=== PATIENT | female | born 1990 | race Caucasian/White ===

== ENCOUNTER 2018-10-09 11:08 | Outpatient (CLI) | payer BC, SELFPAY ==
--- NOTE | 2018-10-09 11:00 | DI.US_ITS ---
SYMPTOM/DIAGNOSIS: LUMP AXILLARY TAIL RT BREAST N 63.91 ULTRASOUND RIGHT BREAST: The study was done according to the usual protocol and reveals multiple lymph nodes in the right breast. The largest node measures up to as much as 3.2 x 0.6 x 1.2 cm in the axillary region. There is a question of subcutaneous mass involving the skin with skin thickening and heterogeneous echogenicity is identified. Mild color flow is noted at this site which is in the region of the patient's palpable lump. SUMMARY: A subcutaneous region of soft tissue abnormality is demonstrated in the right axilla and appears to likely represent a dermatological abnormality. There is no evidence of a breast lesion. These findings to be correlated with the patient's clinical status and clinical management is recommended with a biopsy to be performed if clinically appropriate.
== END 2018-10-09 11:28 ==
PROVIDERS: PCP Nurse Practitioner Family; Visit Provider Nurse Practitioner Family
DX: N63.31 Unspecified lump in axillary tail of the right breast (principal); R59.0 Localized enlarged lymph nodes
CPT/HCPCS: 76642

== ENCOUNTER 2019-03-03 08:57 | Emergency (ER) | payer BC, SELFPAY ==
[2019-03-03 09:04] VITALS: BP 125/74; PULSE 59; RESP 16; TEMP 36.6; O2SAT 98
--- NOTE | 2019-03-03 09:31 | W.ED.GENAD ---
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 Fong of gynecology. Please return immediately to the emergency department if you develop any new or worsening symptoms or if you become otherwise concerned. Referrals: Amy Cuellar MD [ [facility] STAFF PHYSICIAN] - Medical Decision Making Lacey Cunningham is a 28-year-old woman without history of major medical problems presenting to the emergency department with genital pain worsening after starting Bactrim 02/26 for same complaint. On exam, patient is very well and nontoxic appearing. There appears to be a perineal abscess, exam not consistent with typical Bartholin cyst or perirectal abscess. I discussed the patient with Dr. Cuellar of gynecology, who will see the patient immediately upstairs. Pt is stable for d/c from ED for outpt f/u. Plan to discharge patient from the emergency department immediately to Dr. Cuellar in this building. I had a lengthy discussion with the patient regarding return to emergency department precautions, importance of going directly upstairs for further evaluation. Patient verbalized understanding of the plan was amenable. All questions were answered. Medical Records Medical records reviewed: Yes I reviewed the patient's medical records. HPI General Mode of arrival: ambulatory. Date/Time Provider Initiated Documentation: 03/03/19 09:31. Limitations to Documentation: no limitations. Information obtained by: patient, RN notes reviewed and old records reviewed. HPI Narrative: Lacey Cunningham is a 28 y/o woman with out reported history of major medical problems presenting to the emergency department with vaginal pain. Patient reports that she was seen here 02/26 and diagnosed with Bartholin cyst. At that time she was given the option of I&D versus antibiotic treatment. At that time patient elected to have antibiotic treatment and defer I&D. She reports that she has been taking antibiotics as prescribed, but this seems to have enlarged and has become more painful. Patient denies any other symptoms, feels otherwise in her usual state of health. Related Data Home Medications Medication Instructions Recorded Confirmed sulfamethoxazole 800 1 tab PO BID 7 Days #14 tab 02/26/19 03/03/19 mg-trimethoprim 160 mg tablet oxycodone-acetaminophen 5 mg-325 1 tab PO Q6H PRN #5 tab MDD 4 03/03/19 mg tablet Previous Rx's Medication Instructions Recorded sulfamethoxazole 800 1 tab PO BID 7 Days #14 tab 02/26/19 mg-trimethoprim 160 mg tablet oxycodone-acetaminophen 5 mg-325 1 tab PO Q6H PRN #5 tab MDD 4 03/03/19 mg tablet Allergies Allergy/AdvReac Type Severity Reaction Status Date / Time ibuprofen Allergy Severe Anaphylaxsi Verified 03/03/19 09:08 s General Stated 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: 3 Review of Systems Review of Systems Constitutional: denies fevers Eyes: denies eye pain ENT: denies facial pain, dental pain, sore throat Cardiovascular: denies chest pain Respiratory: denies SOB, cough GI: denies abdominal pain, vomiting, diarrhea : denies flank pain, dysuria, vaginal discharge or itching MSK: denies back pain, neck pain, arthralgias, myalgias Skin: denies rash Neuro: denies headaches, numbness, weakness PFSH Social History Smoking/Tobacco Use Status: Current-Occasional Drug use: Occasionally Substance use type: marijuana Do you feel safe at home: Yes Female Reproductive History Menstrual Age of Menarche: 13 control method: none History History 0 Para Hx # Term Pregnancies Multiple births Hx # Pregnancies Ectopic pregnancies AB induced Hx Number of Living Children AB spontaneous Exam Narrative Exam Narrative: Constitutional: well and [id number], pleasant, conversing normally HENT: head atraumatic/normocephalic/normal inspection, mucous membranes moist Eyes: conjunctiva normal, sclera normal, pupils 3mm b/l Neck: no stridor, normal ROM, trachea midline Resp: normal work of breathing, LCTAB Cardio: normal rate, normal rhythm, no murmur appreciated GI: abdomen soft, non-tender, non-distended : Perineum with fluctuant, erythematous, tender area to the right of midline approximately 2 x 3 cm adjacent to anus. Does not involve vaginal introitus, vaginal introitus normal inspection and nontender to palpation. Also does not involve anus, rectal exam normal without blood or tenderness Skin: warm, dry, normal color, no rash Neuro: alert, not altered, grossly non-focal, normal tone Psych: normal mood, normal affect, normal behavior Course Vital Signs Temperature 36.6 C 03/03/19 09:04 Pulse 59 L 03/03/19 09:04 Respiratory Rate 16 03/03/19 09:04 Blood Pressure 125/74 03/03/19 09:04 Pulse Oximetry 98 03/03/19 09:04 Temperature 36.6 C 03/03/19 09:04 Temperature Source Skin 03/03/19 09:04 Pulse 59 L 03/03/19 09:04 Respiratory Rate 16 03/03/19 09:04 Respiratory Effort Non-Labored 03/03/19 09:08 Blood Pressure 125/74 03/03/19 09:04 Blood Pressure Position Sitting 03/03/19 09:04 Pulse Oximetry 98 03/03/19 09:04 Oxygen Delivery Method Room Air 03/03/19 09:04 Oxygen Flow Rate 0 03/03/19 09:04 Pain Level 10 03/03/19 09:08
--- NOTE | 2019-03-03 09:46 | ED.GENADUL_ITS ---
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 Fong of gynecology. Please return immediately to the emergency department if you develop any new or worsening symptoms or if you become otherwise concerned. Referrals: Amy Cuellar MD [ [facility] STAFF PHYSICIAN] - Medical Decision Making Lacey Cunningham is a 28-year-old woman without history of major medical problems presenting to the emergency department with genital pain worsening after starting Bactrim 02/26 for same complaint. On exam, patient is very well and nontoxic appearing. There appears to be a perineal abscess, exam not consistent with typical Bartholin cyst or perirectal abscess. I discussed the patient with Dr. Cuellar of gynecology, who will see the patient immediately upstairs. Pt is stable for d/c from ED for outpt f/u. Plan to discharge patient from the emergency department immediately to Dr. Cuellar in this building. I had a lengthy discussion with the patient regarding return to emergency department precautions, importance of going directly upstairs for further evaluation. Patient verbalized understanding of the plan was amenable. All questions were answered. Medical Records Medical records reviewed: Yes I reviewed the patient's medical records. HPI General Mode of arrival: ambulatory . Date/Time Provider Initiated Documentation: 03/03/19 09:31 . Limitations to Documentation: no limitations . Information obtained by: patient, RN notes reviewed and old records reviewed . HPI Narrative: Lacey Cunningham is a 28 y/o woman with out reported history of major medical problems presenting to the emergency department with vaginal pain. Patient reports that she was seen here 02/26 and diagnosed with Bartholin cyst. At that time she was given the option of I&D versus antibiotic treatment. At that time patient elected to have antibiotic treatment and defer I&D. She reports that she has been taking antibiotics as prescribed, but this seems to have enlarged and has become more painful. Patient denies any other symptoms, feels otherwise in her usual state of health. Related Data Home Medications Medication Instructions Recorded Confirmed sulfamethoxazole 800 1 tab PO BID 7 Days #14 tab 02/26/19 03/03/19 mg-trimethoprim 160 mg tablet oxycodone-acetaminophen 5 mg-325 1 tab PO Q6H PRN #5 tab MDD 4 03/03/19 mg tablet Previous Rx's Medication Instructions Recorded sulfamethoxazole 800 1 tab PO BID 7 Days #14 tab 02/26/19 mg-trimethoprim 160 mg tablet oxycodone-acetaminophen 5 mg-325 1 tab PO Q6H PRN #5 tab MDD 4 03/03/19 mg tablet Allergies Allergy/AdvReac Type Severity Reaction Status Date / Time ibuprofen Allergy Severe Anaphylaxsi Verified 03/03/19 09:08 s 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 Review of Systems Review of Systems Constitutional: denies fevers Eyes: denies eye pain ENT: denies facial pain, dental pain, sore throat Cardiovascular: denies chest pain Respiratory: denies SOB, cough GI: denies abdominal pain, vomiting, diarrhea : denies flank pain, dysuria, vaginal discharge or itching MSK: denies back pain, neck pain, arthralgias, myalgias Skin: denies rash Neuro: denies headaches, numbness, weakness PFSH Social History Smoking/Tobacco Use Status: Current-Occasional Drug use: Occasionally Substance use type: marijuana Do you feel safe at home: Yes Female Reproductive History Menstrual Age of Menarche: 13 control method: none History History 0 Para Hx # Term Pregnancies Multiple births Hx # Pregnancies Ectopic pregnancies AB induced Hx Number of Living Children AB spontaneous Exam Narrative Exam Narrative: Constitutional: well and [id number], pleasant, conversing normally HENT: head atraumatic/normocephalic/normal inspection, mucous membranes moist Eyes: conjunctiva normal, sclera normal, pupils 3mm b/l Neck: no stridor, normal ROM, trachea midline Resp: normal work of breathing, LCTAB Cardio: normal rate, normal rhythm, no murmur appreciated GI: abdomen soft, non-tender, non-distended : Perineum with fluctuant, erythematous, tender area to the right of midline approximately 2 x 3 cm adjacent to anus. Does not involve vaginal introitus, vaginal introitus normal inspection and nontender to palpation. Also does not involve anus, rectal exam normal without blood or tenderness Skin: warm, dry, normal color, no rash Neuro: alert, not altered, grossly non-focal, normal tone Psych: normal mood, normal affect, normal behavior Course Vital Signs Temperature 36.6 C 03/03/19 09:04 Pulse 59 L 03/03/19 09:04 Respiratory Rate 16 03/03/19 09:04 Blood Pressure 125/74 03/03/19 09:04 Pulse Oximetry 98 03/03/19 09:04 Temperature 36.6 C 03/03/19 09:04 Temperature Source Skin 03/03/19 09:04 Pulse 59 L 03/03/19 09:04 Respiratory Rate 16 03/03/19 09:04 Respiratory Effort Non-Labored 03/03/19 09:08 Blood Pressure 125/74 03/03/19 09:04 Blood Pressure Position Sitting 03/03/19 09:04 Pulse Oximetry 98 03/03/19 09:04 Oxygen Delivery Method Room Air 03/03/19 09:04 Oxygen Flow Rate 0 03/03/19 09:04 Pain Level 10 03/03/19 09:08
== END 2019-03-03 11:40 | disposition home or self-care (01) ==
PROVIDERS: Emergency Provider Student in an Organized Health Care Education/Training Program; PCP Nurse Practitioner Family
DX: L02.215 Cutaneous abscess of perineum (principal)
CPT/HCPCS: 99283

== ENCOUNTER 2019-03-03 13:42 | Outpatient (REF) | payer BC, SELFPAY | END 2019-03-03 14:02 | LOC: LBN 13:42 | PROVIDERS: PCP Nurse Practitioner Family; Visit Provider Obstetrics & Gynecology Gynecology | DX: N75.1 Abscess of Bartholin's gland (principal) | CPT/HCPCS: 87077; 87070; 87186; 87205 ==

== ENCOUNTER 2019-04-07 12:21 | Outpatient (REF) | payer BC, SELFPAY ==
--- NOTE | 2019-04-07 10:00 | PAPFT_PTH ---
PATIENT: Lacey Cunningham LOC: [facility] U#:[id number] AGE/SX: 28/F ROOM: RE04/07/[address]: Laverne Lawson : 1990 BED: DIS: 04/07/2019 SPEC #: [id number] RECD: 04/08/19 13:04 STATUS: NINOSKA REQ #: [id number] SAMIA: 04/07/19 10:[address]: Laverne Lawson DEPT: [facility] Cytology RECD BY: Ana Paula Mi Tissues: 1 - CX/ENDOCX FOR PAP SMEARS Procedures: PAP THIN PREP/UVM Screening Comments: [id number]
== END 2019-04-07 12:41 ==
LOC: NCHCN 12:21
PROVIDERS: PCP Nurse Practitioner Family; Visit Provider Nurse Practitioner Family
DX: Z00.00 Encounter for general adult medical examination without abnormal findings (principal); Z12.4 Encounter for screening for malignant neoplasm of cervix; Z01.419 Encounter for gynecological examination (general) (routine) without abnormal findings
CPT/HCPCS: 88142

== ENCOUNTER 2024-12-02 11:59 | Outpatient (REF) | payer BC, SELFPAY | END 2024-12-02 12:00 | disposition home or self-care (01) | LOC: LBN 11:59 | PROVIDERS: Visit Provider Obstetrics & Gynecology | DX: R30.0 Dysuria (principal); N94.9 Unspecified condition associated with female genital organs and menstrual cycle; O26.859 Spotting complicating pregnancy, unspecified trimester | CPT/HCPCS: 87086; 87480; 87510; 87660 ==

== ENCOUNTER 2024-12-02 12:45 | Outpatient (CLI) | payer BC, SELFPAY ==
[2024-12-02 13:46] LABS: HCG Quant, Pregnancy 178 mIU/mL (1-3)
== END 2024-12-02 12:46 | disposition home or self-care (01) ==
PROVIDERS: Visit Provider Obstetrics & Gynecology
DX: O26.851 Spotting complicating pregnancy, first trimester (principal); R63.5 Abnormal weight gain
CPT/HCPCS: 36415; 84443; 84702

== ENCOUNTER 2024-12-06 03:14 | Outpatient (CLI) | payer BC, SELFPAY ==
[2024-12-06 12:08] LABS: HCG Quant, Pregnancy 169 mIU/mL (1-3)
== END 2024-12-06 03:15 | disposition home or self-care (01) ==
LOC: LBO 03:14
PROVIDERS: Visit Provider Obstetrics & Gynecology
DX: O26.859 Spotting complicating pregnancy, unspecified trimester (principal)
CPT/HCPCS: 36415; 84702

== ENCOUNTER 2024-12-08 03:27 | Outpatient (CLI) | payer BC, SELFPAY ==
[2024-12-08 11:51] LABS: HCG Quant, Pregnancy 196 mIU/mL (1-3)
== END 2024-12-08 03:28 | disposition home or self-care (01) ==
LOC: LBO 03:27
PROVIDERS: Visit Provider Obstetrics & Gynecology
DX: O26.851 Spotting complicating pregnancy, first trimester (principal)
CPT/HCPCS: 36415; 84702

== ENCOUNTER 2024-12-09 03:04 | Outpatient (CLI) | payer BC, SELFPAY ==
[2024-12-09 07:55] LABS: HCT 39.1 % (36.0-46.0); HGB 13.1 g/dL (11.2-15.7); MCH 29.6 pg (27.0-33.0); MCHC 33.5 % (32.0-36.0); MCV 88 fL (80-95); MPV 10.7 fL (8.0-11.0); Platelet Count 180 10^3/uL (130-400); RBC 4.43 10^6/uL (3.93-5.22); RDW 12.5 % (11.7-14.6); RDW-SD 40.7 fL; WBC 5.96 10^3/uL (4.4-10.8)
[2024-12-09 08:16] LABS: ALT 22 U/L (14-59); AST 13 U/L (15-37); Alkaline Phosphatase 54 U/L (46-116); Anion Gap 7.1 mmol/L (3-11); BUN 12 mg/dL (7-18); Bilirubin, Total 0.61 mg/dL (0.2-1.0); CO2 25.9 mmol/L (21.0-32.0); CREATININE 0.9 mg/dL (0.55-1.02); Calcium 9.3 mg/dL (8.5-10.1); Chloride 106 mmol/L (98-107); Estimated GFR 87.11 (mL/min/1.73m2); Glucose 104 mg/dL (74-106); HCG Quant, Pregnancy 145 mIU/mL (1-3); Potassium 3.9 mmol/L (3.5-5.1); Sodium 139 mmol/L (136-145); Total Protein 7.3 g/dL (6.4-8.2)
== END 2024-12-09 03:05 | disposition home or self-care (01) ==
PROVIDERS: Visit Provider Obstetrics & Gynecology
DX: O02.81 Inappropriate change in quantitative human chorionic gonadotropin (hCG) in early pregnancy (principal); O26.859 Spotting complicating pregnancy, unspecified trimester; O00.90 Unspecified ectopic pregnancy without intrauterine pregnancy
CPT/HCPCS: 36415; 80053; 85027; 84702

== ENCOUNTER 2024-12-12 09:48 | Outpatient (CLI) | payer BC, SELFPAY ==
[2024-12-12 11:55] LABS: HCG Quant, Pregnancy 119 mIU/mL (1-3)
== END 2024-12-12 09:49 | disposition home or self-care (01) ==
LOC: BCD 06-09 09:49
PROVIDERS: PCP Obstetrics & Gynecology; Visit Provider Obstetrics & Gynecology
DX: O02.81 Inappropriate change in quantitative human chorionic gonadotropin (hCG) in early pregnancy (principal)
CPT/HCPCS: 36415; 84702

== ENCOUNTER 2024-12-15 03:41 | Outpatient (CLI) | payer BC, SELFPAY ==
[2024-12-15 14:07] LABS: HCG Quant, Pregnancy 90 mIU/mL (1-3)
== END 2024-12-15 03:42 | disposition home or self-care (01) ==
PROVIDERS: Visit Provider Obstetrics & Gynecology
DX: O00.90 Unspecified ectopic pregnancy without intrauterine pregnancy (principal)
CPT/HCPCS: 36415; 84702

== ENCOUNTER 2024-12-22 04:40 | Outpatient (CLI) | payer BC, SELFPAY ==
[2024-12-22 10:23] LABS: HCG Quant, Pregnancy 13 mIU/mL (1-3)
== END 2024-12-22 04:41 | disposition home or self-care (01) ==
LOC: LBO 04:40
PROVIDERS: Obstetrics & Gynecology; Visit Provider Obstetrics & Gynecology
DX: O00.90 Unspecified ectopic pregnancy without intrauterine pregnancy (principal)
CPT/HCPCS: 36415; 84702

== ENCOUNTER 2024-12-29 03:59 | Outpatient (CLI) | payer BC, SELFPAY ==
[2024-12-29 12:59] LABS: HCG Quant, Pregnancy 1 mIU/mL (1-3)
== END 2024-12-29 04:00 | disposition home or self-care (01) ==
LOC: LBO 03:59
PROVIDERS: Visit Provider Obstetrics & Gynecology
DX: O00.90 Unspecified ectopic pregnancy without intrauterine pregnancy (principal)
CPT/HCPCS: 36415; 84702

== ENCOUNTER 2025-01-20 14:28 | Outpatient (REF) | payer BC, SELFPAY | END 2025-01-20 14:29 | disposition home or self-care (01) | LOC: LBN 14:28 | PROVIDERS: Visit Provider Obstetrics & Gynecology | DX: Z12.4 Encounter for screening for malignant neoplasm of cervix (principal) | CPT/HCPCS: 88142; 87624 ==